=== PATIENT | female | born 1985 | race African-American/Black ===

== ENCOUNTER 2016-08-13 20:30 | Emergency (ER) | payer OTHER ==
[~2016-08-13] VITALS: Ht 167.6 cm; Wt 114.5 kg
[2016-08-13] MEDS ORDERED: MECLIZINE HCL 25 MG TABLET PO ONE (22:15)
[2016-08-13] MEDS ORDERED: ONDANSETRON HCL 4 MG TABLET PO ONE (22:15)
[2016-08-13 22:33] LABS: BASOPHILS # (AUTO) 0.04 K/uL (0.00-0.20); BASOPHILS % (AUTO) 0.6 % (0.0-2.0); EOSINOPHILS # (AUTO) 0.29 K/uL (0.00-0.70); EOSINOPHILS % (AUTO) 4.34 % (1.0-6.0); HEMATOCRIT 38.3 % (36-46); HEMOGLOBIN 12.3 g/dL (12.0-16.0); LYMPHOCYTES # (AUTO) 3.2 K/uL (1.0-4.8); LYMPHOCYTES % (AUTO) 48.7 % (22.0-44.0); MEAN CORPUSCULAR HEMOGLOBIN 23.3 pg (26.0-34.0); MEAN CORPUSCULAR HGB CONC 32.2 G/dL (31.0-37.0); MEAN CORPUSCULAR VOLUME 72 fL (80-100); MONOCYTES # (AUTO) 0.2 K/uL (0.1-1.0); MONOCYTES % (AUTO) 3.2 % (2.0-9.0); NEUTROPHILS # (AUTO) 2.9 K/uL (1.8-7.7); NEUTROPHILS % (AUTO) 43.2 % (40.0-70.0); PLATELET COUNT (AUTO) 248 K/uL (150-450); RED BLOOD CELL COUNT(AUTO) 5.29 MIL/uL (4.00-5.20); RED CELL DISTRIBUTION WIDTH 16.3 % (11.5-14.5); WHITE BLOOD COUNT (AUTO) 6.7 K/uL (4.5-11.0)
[2016-08-13 22:39] VITALS: BP 133/81
[2016-08-13 22:39] LABS: ANION GAP 9 mmol/L (8-16); CALCIUM, TOTAL 9.4 mg/dL (8.8-10.5); CARBON DIOXIDE 27 mmol/L (22-29); CHLORIDE 104 mmol/L (98-107); CREATININE 0.83 mg/dL (0.60-1.30); GLOMERULAR FILTR. RATE CALC > 60 mL/min (>60); POTASSIUM 3.7 mmol/L (3.5-5.1); SODIUM SERUM 140 mmol/L (136-145); UREA NITROGEN, BLOOD 11 mg/dL (7-18)
== END 2016-08-13 23:09 | disposition home or self-care (01) ==
LOC: EMS 20:34
DX: R42 Dizziness and giddiness (principal)
CPT/HCPCS: 36415; 80048; 84703; 85025; 99284; Q0162

== ENCOUNTER 2019-07-07 14:30 | Emergency (ER) | payer OTHER ==
[~2019-07-07] VITALS: Ht 165.1 cm; Wt 96.0 kg
[2019-07-07] MEDS ORDERED: KETOROLAC TROMETHAMINE 30 MG/ML VIAL IM ONE (15:45)
[2019-07-07 16:15] VITALS: BP 128/71
== END 2019-07-07 17:05 | disposition home or self-care (01) ==
LOC: EMS 14:31
DX: S16.1XXA Strain of muscle, fascia and tendon at neck level, initial encounter (principal); S46.812A Strain of other muscles, fascia and tendons at shoulder and upper arm level, left arm, initial encounter; S46.811A Strain of other muscles, fascia and tendons at shoulder and upper arm level, right arm, initial encounter; Z98.890 Other specified postprocedural states; V49.9XXA Car occupant (driver) (passenger) injured in unspecified traffic accident, initial encounter; Y93.89 Activity, other specified; Y92.89 Other specified places as the place of occurrence of the external cause; Y99.8 Other external cause status
CPT/HCPCS: 96372; 99283; J1885

== ENCOUNTER 2022-04-05 11:44 | Emergency (ER) | payer OTHER ==
[~2022-04-05] VITALS: Ht 170.2 cm; Wt 102.3 kg
[2022-04-05] MEDS ORDERED: IBUPROFEN 400 MG TABLET PO ONE (12:30)
[2022-04-05] MEDS ORDERED: ACETAMINOPHEN 325 MG TABLET PO ONE (12:30)
[2022-04-05 12:42] VITALS: BP 118/59
== END 2022-04-05 12:44 | disposition home or self-care (01) ==
LOC: EMS 11:53
DX: R10.2 Pelvic and perineal pain (principal); D57.1 Sickle-cell disease without crisis
CPT/HCPCS: 99283

== ENCOUNTER 2024-06-23 20:26 | Emergency (ER) | payer OTHER ==
[~2024-06-23] VITALS: Ht 167.6 cm; Wt 122.7 kg
[2024-06-23 20:56] VITALS: TEMP 98.2
[2024-06-23] MEDS ORDERED: SEMA1PEN5 SQ (20:56)
[2024-06-23 22:32] LABS: BASOPHILS % (AUTO) 0.6 % (0.0-2.0); EOSINOPHILS % (AUTO) 2.4 % (1.0-6.0); HEMATOCRIT 38.2 % (36-46); HEMOGLOBIN 12.2 g/dL (12.0-16.0); LYMPHOCYTES # (AUTO) 2.8 K/uL (1.0-4.8); LYMPHOCYTES % (AUTO) 35.3 % (22.0-44.0); MEAN CORPUSCULAR HEMOGLOBIN 24.1 pg (26.0-34.0); MEAN CORPUSCULAR VOLUME 76 fL (80-100); MONOCYTES # (AUTO) 0.5 K/uL (0.1-1.0); MONOCYTES % (AUTO) 5.9 % (2.0-9.0); NEUTROPHILS # (AUTO) 4.3 K/uL (1.8-7.7); NEUTROPHILS % (AUTO) 55.8 % (40.0-70.0); PLATELET COUNT (AUTO) 263 K/uL (150-450); RED BLOOD CELL COUNT(AUTO) 5.06 MIL/uL (4.00-5.20); RED CELL DISTRIBUTION WIDTH 15.2 % (11.5-14.5); RETICULOCYTE % (AUTO) 1.1 % (0.5-2.3); WHITE BLOOD COUNT (AUTO) 7.8 K/uL (4.5-11.0)
[2024-06-23 22:38] LABS: ANION GAP 8 mmol/L (8-16); CALCIUM, TOTAL 9.1 mg/dL (8.8-10.5); CARBON DIOXIDE 30 mmol/L (22-29); CHLORIDE 103 mmol/L (98-107); CREATININE 0.94 mg/dL (0.60-1.30); GLOMERULAR FILTR. RATE CALC > 60 mL/min (>60); GLUCOSE,RANDOM 89 mg/dL (70-110); POTASSIUM 3.7 mmol/L (3.5-5.1); SODIUM SERUM 141 mmol/L (136-145); UREA NITROGEN, BLOOD 7 mg/dL (7-18)
[2024-06-23 22:47] LABS: ALANINE AMINOTRANSFERASE 22 U/L (12-78); ALBUMIN 3.6 g/dL (3.4-5.0); ALKALINE PHOSPHATASE 64 U/L (46-116); ASPARTATE AMINOTRANSFERASE 16 U/L (15-37); BILIRUBIN,TOTAL 0.2 mg/dL (0.1-1.0); CREATINE KINASE, TOTAL ONLY 148 U/L (26-192); TOTAL PROTEIN, SERUM 7.8 g/dL (6.4-8.2)
[2024-06-23 22:48] LABS: TROPONIN I-HIGH SENSITIVITY Less Than 4 ng/L (<51)
[2024-06-23 22:56] LABS: B-TYPE NATRIURETIC PEPTIDE < 5 pg/mL (0-100)
[2024-06-23 23:33] VITALS: BP 146/87; PULSE 69; RESP 18; O2SAT 100
== END 2024-06-23 23:36 | disposition home or self-care (01) ==
LOC: EMS 20:26
DX: R07.89 Other chest pain (principal); F41.0 Panic disorder [episodic paroxysmal anxiety]; R20.0 Anesthesia of skin
CPT/HCPCS: 71045; 80048; 80076; 82550; 83880; 84484; 84703; 85025; 85045; 93005; 99285; 36415-L1; 36415-TC

== ENCOUNTER 2024-11-29 21:15 | Emergency (ER) | payer OTHER ==
[~2024-11-29] VITALS: Ht 167.6 cm; Wt 122.7 kg
[~2024-11-29 21:15] MED LIST: SEMA1PEN5 SQ
[2024-11-29 23:02] LABS: PLATELET COUNT (AUTO) 287 K/uL (150-450); RED BLOOD CELL COUNT(AUTO) 5.13 MIL/uL (4.00-5.20); RED CELL DISTRIBUTION WIDTH 14.8 % (11.5-14.5); WHITE BLOOD COUNT (AUTO) 6.8 K/uL (4.5-11.0)
[2024-11-29 23:13] LABS: CALCIUM, TOTAL 8.7 mg/dL (8.8-10.5); CREATININE 1.07 mg/dL (0.60-1.30); GLOMERULAR FILTR. RATE CALC > 60 mL/min (>60); GLUCOSE,RANDOM 101 mg/dL (70-110); SODIUM SERUM 138 mmol/L (136-145); UREA NITROGEN, BLOOD 6 mg/dL (7-18)
[2024-11-29 23:19] LABS: CREATINE KINASE, TOTAL ONLY 167 U/L (26-192)
[2024-11-29 23:22] LABS: TROPONIN I-HIGH SENSITIVITY Less Than 4 ng/L (<51)
[2024-11-29 23:29] LABS: RBC MORPHOLOGY COMMENT ABNORMAL RBC MORPH
[2024-11-30] MEDS ORDERED: IOHEXOL 350 MG/ML 100 ML VIAL ONE (00:30)
[2024-11-30] MEDS: SODIUM CHLORIDE 0.9% 1,000 ML IV ONE (00:30)
[2024-11-30] MEDS: ACETAMINOPHEN 500 MG TABLET PO ONE (02:18)
[2024-11-30 03:30] VITALS: BP 129/77; PULSE 73; RESP 18; TEMP 97.9; O2SAT 98
[2024-11-30 03:31] LABS: APPEARANCE,URINE CLEAR (CLEAR); GLUCOSE, URINE (UA) NEGATIVE (NEGATIVE); LEUKOCYTE ESTERASE ,URINE NEGATIVE (NEGATIVE); NITRATE,URINE NEGATIVE (NEGATIVE); OCCULT BLOOD,URINE NEGATIVE (NEGATIVE); SPECIFIC GRAVITIY, URINE 1.025 (1.003-1.030)
[2024-11-30] MEDS: MORPHINE SULFATE 2 MG/ML SYRINGE IVP ONE (04:02)
== END 2024-11-30 05:56 | disposition home or self-care (01) ==
LOC: EMS 21:15
DX: R07.9 Chest pain, unspecified (principal); R06.02 Shortness of breath
CPT/HCPCS: 99285; 71045; 80048; 81003; 82550; 83880; 84484; 84703; 85025; 85379; 36415; 93005; 96374; 71275; 96361; Q9967; J2270; J7030

== ENCOUNTER 2025-02-16 22:30 | Emergency (ER) | payer OTHER ==
[~2025-02-16] VITALS: Ht 167.6 cm; Wt 118.2 kg
[2025-02-16 22:32] VITALS: TEMP 98.1
[2025-02-16 23:07] LABS: PLATELET COUNT (AUTO) 244 K/uL (150-450); RED BLOOD CELL COUNT(AUTO) 4.80 MIL/uL (4.00-5.20); RED CELL DISTRIBUTION WIDTH 15.4 % (11.5-14.5); WHITE BLOOD COUNT (AUTO) 7.2 K/uL (4.5-11.0)
[2025-02-16 23:17] LABS: CREATININE 0.73 mg/dL (0.60-1.30); GLOMERULAR FILTR. RATE CALC > 60 mL/min (>60); GLUCOSE,RANDOM 97 mg/dL (70-110); SODIUM SERUM 139 mmol/L (136-145); UREA NITROGEN, BLOOD 6 mg/dL (7-18)
[2025-02-16 23:18] LABS: CALCIUM, TOTAL 8.4 mg/dL (8.8-10.5)
[2025-02-16 23:26] LABS: RBC MORPHOLOGY COMMENT ABNORMAL RBC MORPH
[2025-02-16 23:27] VITALS: BP 132/88; PULSE 78; RESP 19; O2SAT 98
[2025-02-16 23:30] LABS: TROPONIN I-HIGH SENSITIVITY Less Than 4 ng/L (<51)
[2025-02-16] MEDS ORDERED: LIDO-57 TP (23:47)
[2025-02-16] MEDS ORDERED: CYCL-448 PO (23:47)
[2025-02-17] MEDS: KETOROLAC TROMETHAMINE 30 MG/ML VIAL IM ONE (00:03)
[2025-02-17] MEDS: LIDOCAINE 5% TRANSDERMAL PATCH TD ONE (00:03)
== END 2025-02-17 00:11 | disposition home or self-care (01) ==
LOC: EMS 22:32
DX: M54.50 Low back pain, unspecified (principal); I10 Essential (primary) hypertension; Z98.890 Other specified postprocedural states; Z79.899 Other long term (current) drug therapy
CPT/HCPCS: 99285; 71045; 80048; 84484; 85025; 36415; 93005; 96372; J1885